=== PATIENT | female | born 1985 | race Caucasian/White ===

== ENCOUNTER 2017-09-23 06:47 | Inpatient (IN) | payer BC ==
[2017-09-23] MEDS ORDERED: Ondansetron 4 MG/2 ML SDV IVPUSH PRN ×3 (08:14→19:29)
[2017-09-23] MEDS ORDERED: Sodium Chloride 0.9% 10 ML Syringe FLUSH PRN (08:14)
[2017-09-23] MEDS ORDERED: Oxytocin/Lactated Ringers 10 UNIT/1,000 ML BAG IV SCH (08:15)
[2017-09-23] MEDS ORDERED: ePHEDrine 50 MG/ML SDV IVPUSH PRN (08:41)
[2017-09-23] MEDS ORDERED: Phenylephrine 1 MG in Sodium Chloride 0.9% 10 ML IV SCH (08:45)
[2017-09-23] MEDS ORDERED: Bupivacaine/fentaNYL/NS 100 ML Bag EPIDUR SCH (08:45)
--- NOTE | 2017-09-23 08:48 | PCM.PREANE ---
Preanesthetic Assessment - Anesthesia/Transfusion/Family Hx Anesthesia History: Prior Anesthesia Without Reaction Family History of Anesthesia Reaction: No Transfusion History: No Prior Transfusion(s) Intubation History: Unknown - Review of Systems General: No Symptoms Pulmonary: No Symptoms Cardiovascular: No Symptoms Gastrointestinal: No Symptoms (GERD with ) Neurological: No Symptoms Other: Reports: None - Physical Assessment NPO Status Date: 09/23/17 NPO Status Time: 09:00 Pulse: 82 O2 Sat by Pulse Oximetry: 99 Respiratory Rate: 18 Blood Pressure: 110/72 Temperature: 36.8 C Vital Signs: Last Vital Signs Temp 36.8 C 09/23/17 07:50 Pulse 82 09/23/17 08:02 Resp 18 09/23/17 07:50 BP 110/72 09/23/17 07:53 Pulse Ox Height: 1.63 m Weight: 79.379 kg ASA Class: 2 Mental Status: Alert & Oriented x3 Airway Class: Mallampati = 2 Dentition: Reports: Normal Dentition, Caries Thyro-Mental Finger Breadths: 3 Mouth Opening Finger Breadths: 3 ROM/Head Extension: Full Lungs: Clear to Auscultation, Normal Respiratory Effort Cardiovascular: Regular Rate, Regular Rhythm, No Murmurs - Lab Values: Laboratory Last Values WBC 8.16 K/mm3 (3.98-10.04) 09/23/17 08:30 RBC 3.63 M/mm3 (3.98-5.22) L 09/23/17 08:30 Hgb 10.8 gm/L (11.2-15.7) L 09/23/17 08:30 Hct 32.4 % (34.1-44.9) L 09/23/17 08:30 MCV 89.3 fl (79.4-94.8) 09/23/17 08:30 MCH 29.8 pg (25.6-32.2) 09/23/17 08:30 MCHC 33.3 g/dl (32.2-35.5) 09/23/17 08:30 RDW Std Deviation 43.6 fL (36.4-46.3) 09/23/17 08:30 Plt Count 155 K/mm3 (182-369) L 09/23/17 08:30 MPV 11.2 fl (9.4-12.3) 09/23/17 08:30 Neut % (Auto) 68.9 % (34.0-71.1) 09/23/17 08:30 Lymph % (Auto) 20.3 % (19.3-51.7) 09/23/17 08:30 [place] % (Auto) 8.6 % (4.7-12.5) 09/23/17 08:30 Eos % (Auto) 1.1 (0.7-5.8) 09/23/17 08:30 Baso % (Auto) 0.5 % (0.1-1.2) 09/23/17 08:30 Neut # (Auto) 5.62 K/mm3 (1.56-6.13) 09/23/17 08:30 Lymph # (Auto) 1.66 K/mm3 (1.18-3.74) 09/23/17 08:30 [place] # (Auto) 0.70 K/mm3 (0.24-0.36) H 09/23/17 08:30 Eos # (Auto) 0.09 K/mm3 (0.04-0.36) 09/23/17 08:30 Baso # (Auto) 0.04 K/mm3 (0.01-0.08) 09/23/17 08:30 Above labs reviewed and noted and within acceptable ranges to proceed with epidural. 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 Musculoskeletal History: Reports: None Hematologic History: Reports: Anemia - Past Surgical History Musculoskeletal Surgical History: Reports: Other (See Below) - SUBSTANCE USE Smoking Status *Q: Never Smoker Tobacco Use Within Last Twelve Months: No Second Hand Smoke Exposure: No Days Per Week of Alcohol Use: 0 Recreational Drug Use History: No - HOME MEDS Home Medications: Home Meds Vit No.124/Iron/FA [ Vitamin Tablet] 1 tab PO DAILY 09/20/15 [ History] - CURRENT (IN HOUSE) MEDS Current Meds: Current Medications Ephedrine Sulfate (Ephedrine Sulfate) 5 mg IVPUSH ASDIRECTED PRN PRN Reason: Hypotension Fentanyl (Sublimaze) 100 mcg EPIDUR Q3H PRN PRN Reason: Pain Fentanyl/Bupivacaine HCl (Fentanyl/Bupivacaine/Ns 2 Mcg-0.125% 100 Ml) 100 ml EPIDUR ASDIRECTED ANNABELLE Lactated Ringer's (Ringers, Lactated) 1,000 mls @ 100 mls/hr IV ASDIRECTED ANNABELLE Oxytocin/Lactated Ringer's (Pitocin In Lr 10 Units/1,000 Ml) 10 unit in 1,000 mls @ 5,000 mls/hr IV .CONTINUOUS ANNABELLE; Protocol Phenylephrine HCl 1 mg/ Sodium (Chloride) 10.1 mls @ 1 mls/sec IV TITRATE ANNABELLE; Protocol Ondansetron HCl (Zofran) 4 mg IVPUSH Q4H PRN PRN Reason: Nausea/Vomiting Ondansetron HCl (Zofran) 4 mg IVPUSH ONETIME PRN PRN Reason: Nausea/Vomiting Sodium Chloride (Saline Flush) 10 ml FLUSH ASDIRECTED PRN PRN Reason: Keep Vein Open
[2017-09-23] MEDS: Oxytocin/Lactated Ringers 10 UNIT/1,000 ML BAG IV SCH ×2 (09:40→15:59)
[2017-09-23] MEDS: Lactated Ringers 1,000 ML IV SCH ×5 (09:40→15:58)
[2017-09-23] MEDS: fentaNYL 100 MCG/2 ML SDV EPIDUR PRN ×2 (12:48→14:32)
[2017-09-23] MEDS ORDERED: Bupivacaine 0.25% 10 ML SDV ONE (16:00)
[2017-09-23] MEDS ORDERED: Benzocaine/Menthol 20%-0.5% Spray 56 GM Canister TOP PRN (18:28)
[2017-09-23] MEDS ORDERED: Witch Hazel Medicated Pads 100/Jar TOP PRN (18:28)
[2017-09-23] MEDS ORDERED: fentaNYL 100 MCG/2 ML SDV ONE (19:12)
[2017-09-23] MEDS ORDERED: Oxytocin/Lactated Ringers 10 UNIT/1,000 ML BAG IV ONE (19:16)
[2017-09-23] MEDS ORDERED: fentaNYL 100 MCG/2 ML SDV IVPUSH ONE (19:26)
--- NOTE | 2017-09-23 19:26 | PCM.SN ---
- Free Text/Narrative Note: On floor and asked to come in to see patient with increased bleeding. Had a saturated chux x 2. Bladder emptied of 400 mL 50mcg of fentanyl given. Uterus evacuated of 100 mL of clot. Fundus then firm Methergine 0.2 mg given
[2017-09-23] MEDS ORDERED: Methylergonovine 0.2 MG/1 ML Amp IM ONE (19:30)
[2017-09-23] MEDS ORDERED: ceFAZolin 2 GM in Premix Bag 1 BAG IV ONE (19:30)
[2017-09-23] MEDS: Ibuprofen 600 MG Tab PO PRN (21:25)
[2017-09-24] MEDS: Ibuprofen 600 MG Tab PO PRN ×3 (03:34→16:14)
--- NOTE | 2017-09-24 07:51 | PCM.DEL ---
L & D Note - General Info Date of Service: 09/23/17 - Delivery Note Labor: Augmented by ARM Cervical Ripening Method: Oxytocin Delivery Outcome: Livebirth Presentation: Vertex Anesthesia Type: Epidural Episiotomy Type: None Laceration: None Placenta: Intact, Spontaneous Resuscitation Needed: No Score 1 min: 8 Score 5 min: 9 Delivery Comments (Free Text/Narrative):: of viable male. 8#13 at 543pm - General Info Date of Service: 09/24/17 Functional Status: Reports: Pain Controlled - Review of Systems General: Reports: No Symptoms HEENT: Reports: No Symptoms Pulmonary: Reports: No Symptoms Cardiovascular: Reports: No Symptoms Gastrointestinal: Reports: No Symptoms Genitourinary: Reports: No Symptoms Musculoskeletal: Reports: No Symptoms Skin: Reports: No Symptoms Neurological: Reports: No Symptoms Psychiatric: Reports: No Symptoms - Patient Data Vitals - Most Recent: Last Vital Signs Temp 36.6 C 09/24/17 03:31 Pulse 70 09/24/17 03:31 Resp 15 09/24/17 03:31 BP 111/62 09/24/17 03:31 Pulse Ox 99 09/24/17 03:31 Weight - Most Recent: 79.379 kg I&O - Last 24 Hours: Intake & Output 09/23/17 09/24/17 09/24/17 22:59 06:59 14:59 Intake Total 5000 2050 Output Total 400 Balance 4600 2050 Lab Results Last 24 Hours: Laboratory Results - last 24 hr 09/23/17 Range/Units 08:30 WBC 8.16 (3.98-10.04) K/mm3 RBC 3.63 L (3.98-5.22) M/mm3 Hgb 10.8 L (11.2-15.7) gm/L Hct 32.4 L (34.1-44.9) % MCV 89.3 (79.4-94.8) fl MCH 29.8 (25.6-32.2) pg MCHC 33.3 (32.2-35.5) g/dl RDW Std Deviation 43.6 (36.4-46.3) fL Plt Count 155 L (182-369) K/mm3 MPV 11.2 (9.4-12.3) fl Neut % (Auto) 68.9 (34.0-71.1) % Lymph % (Auto) 20.3 (19.3-51.7) % [place] % (Auto) 8.6 (4.7-12.5) % Eos % (Auto) 1.1 (0.7-5.8) Baso % (Auto) 0.5 (0.1-1.2) % Neut # (Auto) 5.62 (1.56-6.13) K/mm3 Lymph # (Auto) 1.66 (1.18-3.74) K/mm3 [place] # (Auto) 0.70 H (0.24-0.36) K/mm3 Eos # (Auto) 0.09 (0.04-0.36) K/mm3 Baso # (Auto) 0.04 (0.01-0.08) K/mm3 Med Orders - Current: Current Medications Benzocaine/Menthol (Dermoplast Pain Relief Shirley) 0 gm TOP ASDIRECTED PRN PRN Reason: Perineal Comfort Measure Last Admin: 09/23/17 19:56 Dose: 1 applic Ibuprofen (Motrin) 600 mg PO Q6H PRN PRN Reason: Mild pain or fever Last Admin: 09/24/17 03:34 Dose: 600 mg Ondansetron HCl (Zofran) 4 mg IVPUSH Q8H PRN PRN Reason: Nausea Last Admin: 09/23/17 19:48 Dose: 4 mg Witch Maria (Tucks) 1 pad TOP ASDIRECTED PRN PRN Reason: Hemorrhoid pain Last Admin: 09/23/17 19:56 Dose: 1 applic Discontinued Medications Ephedrine Sulfate (Ephedrine Sulfate) 5 mg IVPUSH ASDIRECTED PRN PRN Reason: Hypotension Fentanyl (Sublimaze) 100 mcg EPIDUR Q3H PRN PRN Reason: Pain Last Admin: 09/23/17 14:32 Dose: 100 mcg Fentanyl (Sublimaze) Confirm Administered Dose 100 mcg .ROUTE .STK-MED ONE Stop: 09/23/17 19:13 Last Admin: 09/23/17 19:53 Dose: Not Given Fentanyl (Sublimaze) 50 mcg IVPUSH ONETIME ONE Stop: 09/23/17 19:27 Last Admin: 09/23/17 19:34 Dose: 50 mcg Fentanyl/Bupivacaine HCl (Fentanyl/Bupivacaine/Ns 2 Mcg-0.125% 100 Ml) 100 ml EPIDUR ASDIRECTED ANNABELLE Last Admin: 09/23/17 12:48 Dose: 100 ml Lactated Ringer's (Ringers, Lactated) 1,000 mls @ 100 mls/hr IV ASDIRECTED ANNABELLE Last Admin: 09/23/17 15:58 Dose: 999 mls/hr Oxytocin/Lactated Ringer's (Pitocin In Lr 10 Units/1,000 Ml) 10 unit in 1,000 mls @ 5,000 mls/hr IV .CONTINUOUS ANNABELLE; Protocol Last Admin: 09/23/17 19:36 Dose: 500 mls/hr Phenylephrine HCl 1 mg/ Sodium (Chloride) 10.1 mls @ 1 mls/sec IV TITRATE ANNABELLE; Protocol Oxytocin/Lactated Ringer's (Pitocin In Lr 10 Units/1,000 Ml) 10 unit in 1,000 mls @ 12 mls/hr IV TITRATE ANNABELLE; Protocol Last Titration: 09/23/17 16:35 Dose: 0 munits/min, 0 mls/hr Oxytocin/Lactated Ringer's (Pitocin In Lr 10 Units/1,000 Ml) Confirm Administered Dose 10 unit in 1,000 mls @ as directed IV .STK-MED ONE Stop: 09/23/17 19:17 Last Admin: 09/23/17 19:53 Dose: Not Given Cefazolin Sodium/Dextrose 2 gm (/ Premix) 50 mls @ 100 mls/hr IV ONETIME ONE Stop: 09/23/17 19:59 Last Admin: 09/23/17 19:56 Dose: 100 mls/hr Methylergonovine Maleate (Methergine) 0.2 mg IM ONETIME ONE Stop: 09/23/17 19:31 Last Admin: 09/23/17 19:53 Dose: Not Given Ondansetron HCl (Zofran) 4 mg IVPUSH Q4H PRN PRN Reason: Nausea/Vomiting Ondansetron HCl (Zofran) 4 mg IVPUSH ONETIME PRN PRN Reason: Nausea/Vomiting Sodium Chloride (Saline Flush) 10 ml FLUSH ASDIRECTED PRN PRN Reason: Keep Vein Open - Exam General: Alert, Oriented HEENT: Pupils Equal, Pupils Reactive, EOMI, Mucous Membr. Moist/[place] Neck: Supple Lungs: Clear to Auscultation, Normal Respiratory Effort Cardiovascular: Regular Rate, Regular Rhythm GI/Abdominal Exam: Normal Bowel Sounds, Soft, Non-Tender, No Organomegaly, No Distention, No Abnormal Bruit, No Mass, Pelvis Stable Back Exam: Normal Inspection, Full Range of Motion Extremities: Normal Inspection, Normal Range of Motion, Non-Tender, No Pedal Edema, Normal Capillary Refill Skin: Warm, Dry, Intact Wound/Incisions: Healing Well Neurological: No New Focal Deficit Psy/Mental Status: Alert, Normal Affect, Normal Mood - Problem List Review Problem List Initiated/Reviewed/Updated: Yes - My Orders Last 24 Hours: My Active Orders 09/23/17 08:14 Resuscitation Status Routine 09/23/17 08:15 Heart Tones [RC] ASDIRECTED Peripheral IV Care [RC] . DIRECTED 09/23/17 18:28 Activity as Tolerated [RC] PER UNIT ROUTINE Vital Signs [RC] 09,15,21,03 Benzocaine/Menthol [Dermoplast Pain Relief Shirley] See Dose Instructions TOP ASDIRECTED PRN Ibuprofen [Motrin] 600 mg PO Q6H PRN [place] [Tucks] 1 pad TOP ASDIRECTED PRN Assess Lochia [WOMSER] Per Unit Routine Assess Uterine Involution [WOMSER] Per Unit Routine Breast Pump [WOMSER] Per Unit Routine Heat Therapy [OM.PC] PRN Medication Administration Instruction [OM.PC] Routine Perineal Care [OM.PC] Per Unit Routine Sitz Bath [OM.PC] Per Unit Routine 09/23/17 19:29 Ondansetron [Zofran] 4 mg IVPUSH Q8H PRN 09/24/17 07:45 Ready for Discharge [RC] PER UNIT ROUTINE 09/24/17 18:28 Heat Therapy [OM.PC] PRN 09/24/17 Breakfast Regular Diet [DIET] - Assessment Assessment:: Term labor and delivery. Doing well. Home today at 24 hours
--- NOTE | 2017-09-24 09:37 | PCM48HPAN ---
Post Anesthesia Note - EVALUATION WITHIN 48HRS OF ANESTHETIC Vital Signs in Normal Range: Yes Patient Participated in Evaluation: Yes Respiratory Function Stable: Yes Airway Patent: Yes Cardiovascular Function Stable: Yes Hydration Status Stable: Yes Pain Control Satisfactory: Yes Nausea and Vomiting Control Satisfactory: Yes Mental Status Recovered: Yes - COMMENTS/OBSERVATIONS Free Text/Narrative:: Pt denies any anesthesia complications
[2017-09-24 15:58] VITALS: BP 111/70
--- NOTE | 2017-09-30 06:21 | PCM.LDHP ---
L&D History of Present Illness - General Date of Service: 09/23/17 Admit Problem/Dx: Admission Diagnosis/Problem Admission Diagnosis/Problem Normal labor Source of Information: Patient History Limitations: Reports: No Limitations - History of Present Illness Introduction:: 32 year old presents for elective induction of labor. 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 General: Reports: No Symptoms HEENT: Reports: No Symptoms Pulmonary: Reports: No Symptoms Cardiovascular: Reports: No Symptoms Gastrointestinal: Reports: No Symptoms Genitourinary: Reports: No Symptoms Musculoskeletal: Reports: No Symptoms Skin: Reports: No Symptoms Psychiatric: Reports: No Symptoms Neurological: Reports: No Symptoms Hematologic/Lymphatic: Reports: No Symptoms Immunologic: Reports: No Symptoms L&D Exam - Exam Exam: See Below - Vital Signs Vital Signs: Last Vital Signs Temp 36.8 C 09/24/17 15:01 Pulse 75 09/24/17 15:01 Resp 18 09/24/17 15:01 BP 111/70 09/24/17 15:01 Pulse Ox 98 09/24/17 15:01 Weight: 79.379 kg - OB Specific Contraction Intensity: Irritability Movement: Active Heart Tones: Present Heart Tones per Min: 145 Presentation: Vertex - Villanueva Score Villanueva Score Cervix Position: Midposition Villanueva Score Consistency: Medium Villanueva Score Effacement: 51-70% Villanueva Score Dilation: 3-4 cm Villanueva Score Infant's Station: -2 Villanueva Score Total: 7 - Exam General: Alert, Oriented HEENT: PERRLA, Conjunctiva Clear, EACs Clear, EOMI, Hearing Intact, Mucosa Moist & [place], Nares Patent, Normal Nasal Septum, Posterior Pharynx Clear, TMs Clear Neck: Supple, Trachea Midline Lungs: Clear to Auscultation, Normal Respiratory Effort Cardiovascular: Regular Rate, Regular Rhythm GI/Abdominal Exam: Normal Bowel Sounds, Soft, Non-Tender, No Organomegaly, No Distention, No Abnormal Bruit, No Mass, Pelvis Stable Genitourinary: Normal external exam, Normal bimanual exam Back Exam: Normal Inspection, Full Range of Motion Extremities: Normal Inspection, Normal Range of Motion, Non-Tender, No Pedal Edema, Normal Capillary Refill Skin: Warm, Dry, Intact Neurological: Cranial Nerves Intact, Reflexes Equal Bilateral Psychiatric: Alert, Normal Affect, Normal Mood - Patient Data Result Diagrams: 09/23/17 08:30 Problem List Initiated/Reviewed/Updated: Yes Assessment/Plan Comment:: Term induction. Uncomplicated care. Anticipate . IVF. CBC. Type and screen
== END 2017-09-24 17:20 | disposition home or self-care (01) | DRG 560 ==
LOC: JD.OB 06:47 → OBSVTOIN 17:42 → JD.OB 17:52
PROVIDERS: ADMIT Obstetrics & Gynecology; ATTEND Obstetrics & Gynecology
PROC: 10907ZC Drainage of Amniotic Fluid, Therapeutic from Products of Conception, Via Natural or Artificial Opening (ICD-10-PCS; principal; 2017-09-23)
PROC: 10E0XZZ Delivery of Products of Conception, External Approach (ICD-10-PCS; principal; 2017-09-23)
PROC: 0UC97ZZ Extirpation of Matter from Uterus, Via Natural or Artificial Opening (ICD-10-PCS; 2017-09-23)
PROC: 00HU33Z Insertion of Infusion Device into Spinal Canal, Percutaneous Approach (ICD-10-PCS; 2017-09-23)
PROC: 3E0R3BZ Introduction of Anesthetic Agent into Spinal Canal, Percutaneous Approach (ICD-10-PCS; 2017-09-23)
DX: O99.02 Anemia complicating childbirth (principal); O72.2 Delayed and secondary postpartum hemorrhage; Z3A.39 39 weeks gestation of pregnancy; Z37.0 Single live birth
CPT/HCPCS: 36415; 51701; 51702; 59025; 59409; 85025; A9270-GY; J0690; J2405; J2590; J3010; J7120

== ENCOUNTER 2019-08-03 08:43 | Inpatient (IN) | payer OTHER ==
[~2019-08-03 08:43] MED LIST: Lidocaine 1.5% with EPINEPHrine 1:200,000 5 ML Amp ONE
[2019-08-03] MEDS ORDERED: Ondansetron 4 MG/2 ML SDV IVPUSH PRN (09:48)
[2019-08-03] MEDS ORDERED: Sodium Chloride 0.9% 10 ML Syringe FLUSH PRN (09:48)
[2019-08-03] MEDS ORDERED: Nalbuphine 10 MG/ML Syringe IVPUSH PRN (09:48)
[2019-08-03] MEDS ORDERED: Oxytocin/Lactated Ringers 10 UNIT/1,000 ML BAG IV SCH ×2 (10:00)
[2019-08-03] MEDS: Lactated Ringers 1,000 ML IV SCH ×2 (10:20→12:55)
[2019-08-03] MEDS ORDERED: Bupivacaine/fentaNYL/NS 100 ML Bag EPIDUR PRN (10:56)
[2019-08-03] MEDS ORDERED: fentaNYL 100 MCG/2 ML SDV EPIDUR PRN (10:56)
[2019-08-03] MEDS ORDERED: diphenhydrAMINE 50 MG/ML SDV IVPUSH PRN (10:56)
[2019-08-03] MEDS ORDERED: ePHEDrine 50 MG/ML SDV IVPUSH PRN (10:56)
--- NOTE | 2019-08-03 11:04 | PCM.PREANE ---
Preanesthetic Assessment - Anesthesia/Transfusion/Family Hx Anesthesia History: Prior Anesthesia Without Reaction Transfusion History: No Prior Transfusion(s) Intubation History: Unknown - Review of Systems General: No Symptoms Pulmonary: No Symptoms Cardiovascular: No Symptoms Gastrointestinal: No Symptoms Neurological: No Symptoms Other: Reports: None - Physical Assessment Vital Signs: Last Vital Signs Temp 98.7 F 08/03/19 09:48 Pulse 92 08/03/19 09:48 Resp 16 08/03/19 09:48 BP 105/68 08/03/19 09:48 Pulse Ox 99 08/03/19 09:48 Height: 1.6 m Weight: 78.471 kg ASA Class: 2 Mental Status: Alert & Oriented x3 Airway Class: Mallampati = 1 Dentition: Reports: Normal Dentition Thyro-Mental Finger Breadths: 3 Mouth Opening Finger Breadths: 3 ROM/Head Extension: Full Lungs: Clear to Auscultation, Normal Respiratory Effort Cardiovascular: Regular Rate, Regular Rhythm - Lab Values: Laboratory Last Values WBC 7.56 K/mm3 (3.98-10.04) 08/03/19 10:05 RBC 3.58 M/mm3 (3.98-5.22) L 08/03/19 10:05 Hgb 10.3 gm/dl (11.2-15.7) L 08/03/19 10:05 Hct 32.3 % (34.1-44.9) L 08/03/19 10:05 MCV 90.2 fl (79.4-94.8) 08/03/19 10:05 MCH 28.8 pg (25.6-32.2) 08/03/19 10:05 MCHC 31.9 g/dl (32.2-35.5) L 08/03/19 10:05 RDW Std Deviation 45.4 fL (36.4-46.3) 08/03/19 10:05 Plt Count 178 K/mm3 (182-369) L 08/03/19 10:05 MPV 10.3 fl (9.4-12.3) 08/03/19 10:05 Neut % (Auto) 71.9 % (34.0-71.1) H 08/03/19 10:05 Lymph % (Auto) 18.7 % (19.3-51.7) L 08/03/19 10:05 [place] % (Auto) 7.5 % (4.7-12.5) 08/03/19 10:05 Eos % (Auto) 1.2 (0.7-5.8) 08/03/19 10:05 Baso % (Auto) 0.3 % (0.1-1.2) 08/03/19 10:05 Neut # (Auto) 5.44 K/mm3 (1.56-6.13) 08/03/19 10:05 Lymph # (Auto) 1.41 K/mm3 (1.18-3.74) 08/03/19 10:05 [place] # (Auto) 0.57 K/mm3 (0.24-0.36) H 08/03/19 10:05 Eos # (Auto) 0.09 K/mm3 (0.04-0.36) 08/03/19 10:05 Baso # (Auto) 0.02 K/mm3 (0.01-0.08) 08/03/19 10:05 - Allergies Allergies/Adverse Reactions: Allergies Allergy/AdvReac Type Severity Reaction Status Date / Time amoxicillin [Amoxicillin] Allergy Rash Verified 09/20/15 06:24 - Acknowledgements Anesthesia Type Planned: Epidural Pt an Appropriate Candidate for the Planned Anesthesia: Yes Alternatives and Risks of Anesthesia Discussed w Pt/Guardian: Yes Pt/Guardian Understands and Agrees with Anesthesia Plan: Yes PreAnesthesia Questionnaire 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: , 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 , Other (See Below) Other OB/BYN History: PP hemmorage with last Musculoskeletal History: Reports: None Psychiatric History: Reports: Other (See Below) Other Psychiatric History: PP depression/anxiety with 1st Hematologic History: Reports: Anemia - Past Surgical History Musculoskeletal Surgical History: Reports: Other (See Below) Other Musculoskeletal Surgeries/Procedures:: R knee surgery - HOME MEDS Home Medications: Home Meds Vit No.124/Iron/Folic [ Vitamin Tablet] 1 tab PO DAILY [History] Ascorbic Acid [Vitamin C] 500 mg PO DAILY PRN 08/03/19 [History] Cholecalciferol (Vitamin D3) [Vitamin D3] 5,000 unit PO DAILY 08/03/19 [History] - CURRENT (IN HOUSE) MEDS Current Meds: Current Medications Lactated Ringer's (Ringers, Lactated) 1,000 mls @ 100 mls/hr IV ASDIRECTED ANNABELLE Last Admin: 08/03/19 10:20 Dose: 100 mls/hr Oxytocin/Lactated Ringer's (Pitocin In Lr 10 Units/1,000 Ml) 10 unit in 1,000 mls @ 12 mls/hr IV TITRATE ANNABELLE; Protocol Last Admin: 08/03/19 10:20 Dose: 2 munits/min, 12 mls/hr Oxytocin/Lactated Ringer's (Pitocin In Lr 10 Units/1,000 Ml) 10 unit in 1,000 mls @ 100 mls/hr IV .CONTINUOUS ANNABELLE Nalbuphine HCl (Nubain) 10 mg IVPUSH Q2H PRN PRN Reason: Pain Ondansetron HCl (Zofran) 4 mg IVPUSH Q4H PRN PRN Reason: Nausea/Vomiting Sodium Chloride (Saline Flush) 10 ml FLUSH ASDIRECTED PRN PRN Reason: Keep Vein Open
--- NOTE | 2019-08-03 18:19 | PCM.LDHP ---
L&D History of Present Illness - General Date of Service: 08/03/19 Admit Problem/Dx: Patient Status Order with Admit Dx/Problem 08/03/19 09:49 Patient Status [ADT] Routine Admission Diagnosis/Problem Admission Diagnosis/Problem - History of Present Illness Introduction:: 34 year old here for induction of labor. PNC with myself without complications. - Related Data Allergies/Adverse Reactions: Allergies Allergy/AdvReac Type Severity Reaction Status Date / Time amoxicillin [Amoxicillin] Allergy Rash Verified 09/20/15 06:24 Home Medications: Home Meds Vit No.124/Iron/Folic [ Vitamin Tablet] 1 tab PO DAILY [History] Ascorbic Acid [Vitamin C] 500 mg PO DAILY PRN 08/03/19 [History] Cholecalciferol (Vitamin D3) [Vitamin D3] 5,000 unit PO DAILY 08/03/19 [History] Past Medical History [employer] History: Reports: , Spontaneous , Other (See Below) Other OB/BYN History: PP hemmorage with last Musculoskeletal History: Reports: None Psychiatric History: Reports: Other (See Below) Other Psychiatric History: PP depression/anxiety with 1st Hematologic History: Reports: Anemia - Past Surgical History Musculoskeletal Surgical History: Reports: Other (See Below) Other Musculoskeletal Surgeries/Procedures:: R knee surgery Social & Family History - Family History Family Medical History: Noncontributory - Tobacco Use Smoking Status *Q: Never Smoker - Caffeine Use Caffeine Use: Reports: None - Recreational Drug Use Recreational Drug Use: No H&P Review of Systems - Review of Systems: Review Of Systems: See Below General: Reports: No Symptoms HEENT: Reports: No Symptoms Pulmonary: Reports: No Symptoms Cardiovascular: Reports: No Symptoms Gastrointestinal: Reports: No Symptoms Genitourinary: Reports: No Symptoms Musculoskeletal: Reports: No Symptoms Skin: Reports: No Symptoms Psychiatric: Reports: No Symptoms Neurological: Reports: No Symptoms Hematologic/Lymphatic: Reports: No Symptoms Immunologic: Reports: No Symptoms L&D Exam - Exam Exam: See Below - Vital Signs Vital Signs: Last Vital Signs Temp 37.1 C 08/03/19 09:48 Pulse 92 08/03/19 09:48 Resp 16 08/03/19 09:48 BP 105/68 08/03/19 09:48 Pulse Ox 99 08/03/19 09:48 Weight: 78.471 kg - OB Specific Contraction Intensity: Mild to Moderate Movement: Active Heart Tones: Present - Villanueva Score Villanueva Score Cervix Position: Midposition Villanueva Score Consistency: Medium Villanueva Score Effacement: 51-70% Villanueva Score Dilation: 3-4 cm Villanueva Score 's Station: -2 Villanueva Score Total: 7 - Exam General: Alert, Oriented HEENT: PERRLA, Conjunctiva Clear, EACs Clear, EOMI, Hearing Intact, Mucosa Moist & [place], Nares Patent, Normal Nasal Septum, Posterior Pharynx Clear, TMs Clear Neck: Supple, Trachea Midline Lungs: Clear to Auscultation, Normal Respiratory Effort Cardiovascular: Regular Rate, Regular Rhythm GI/Abdominal Exam: Normal Bowel Sounds, Soft, Non-Tender, No Organomegaly, No Distention, No Abnormal Bruit, No Mass, Pelvis Stable Back Exam: Normal Inspection, Full Range of Motion Extremities: Normal Inspection, Normal Range of Motion, Non-Tender, No Pedal Edema, Normal Capillary Refill Skin: Warm, Dry, Intact Neurological: Cranial Nerves Intact, Reflexes Equal Bilateral Psychiatric: Alert, Normal Affect, Normal Mood - Patient Data Lab Results Last 24 hrs: Laboratory Results - last 24 hr 08/03/19 08/03/19 Range/Units 10:05 10:05 WBC 7.56 (3.98-10.04) K/mm3 RBC 3.58 L (3.98-5.22) M/mm3 Hgb 10.3 L (11.2-15.7) gm/dl Hct 32.3 L (34.1-44.9) % MCV 90.2 (79.4-94.8) fl MCH 28.8 (25.6-32.2) pg MCHC 31.9 L (32.2-35.5) g/dl RDW Std Deviation 45.4 (36.4-46.3) fL Plt Count 178 L (182-369) K/mm3 MPV 10.3 (9.4-12.3) fl Neut % (Auto) 71.9 H (34.0-71.1) % Lymph % (Auto) 18.7 L (19.3-51.7) % [place] % (Auto) 7.5 (4.7-12.5) % Eos % (Auto) 1.2 (0.7-5.8) Baso % (Auto) 0.3 (0.1-1.2) % Neut # (Auto) 5.44 (1.56-6.13) K/mm3 Lymph # (Auto) 1.41 (1.18-3.74) K/mm3 [place] # (Auto) 0.57 H (0.24-0.36) K/mm3 Eos # (Auto) 0.09 (0.04-0.36) K/mm3 Baso # (Auto) 0.02 (0.01-0.08) K/mm3 Blood Type A POSITIVE Gel Antibody Screen Negative Result Diagrams: 08/03/19 10:05 Problem List Initiated/Reviewed/Updated: Yes Orders Last 24hrs: Active Orders 24 hr Category Date Time Status Patient Status [ADT] Routine ADT 08/03/19 09:49 Active Activity as Tolerated [RC] PFP Care 08/03/19 09:48 Active Communication Order [RC] ASDIRECTED Care 08/03/19 09:48 Active Heart Tones [RC] ASDIRECTED Care 08/03/19 09:49 Active Non Stress Test [RC] PER UNIT ROUTINE Care 08/03/19 09:48 Active Notify Provider [RC] ASDIRECTED Care 08/03/19 10:56 Active Notify Provider [RC] PFP Care 08/03/19 09:48 Active Notify Provider [RC] PRN Care 08/03/19 09:48 Active Peripheral IV Care [RC] . DIRECTED Care 08/03/19 09:49 Active Pump Management, Intrathecal [RC] ASDIRECTED Care 08/03/19 09:50 Active Vital Signs [RC] PER UNIT ROUTINE Care 08/03/19 09:48 Active Regular Diet [DIET] Diet 08/03/19 Breakfast Active PATIENT RETYPE [BBK] Routine Lab 08/03/19 11:23 Ordered RAPID PLASMA REAGIN,RPR [CHEM] Routine Lab 08/03/19 09:48 Ordered Bupivacaine/fentaNYL/NS [fentaNYL/Bupivacaine/NS 2 MCG- Med 08/03/19 10:56 Active 0.125% 100 ML] 100 ml EPIDUR ASDIRECTED PRN Lactated Ringers [Ringers, Lactated] 1,000 ml Med 08/03/19 10:00 Active IV ASDIRECTED Nalbuphine [Nubain] Med 08/03/19 09:48 Active 10 mg IVPUSH Q2H PRN Ondansetron [Zofran] Med 08/03/19 09:48 Active 4 mg IVPUSH Q4H PRN Oxytocin/Lactated Ringers [Pitocin in LR 10 Units/1,000 Med 08/03/19 10:00 Active ML] 10 unit in 1,000 ml IV .CONTINUOUS Oxytocin/Lactated Ringers [Pitocin in LR 10 Units/1,000 Med 08/03/19 10:00 Active ML] 10 unit in 1,000 ml IV TITRATE Sodium Chloride 0.9% [Saline Flush] Med 08/03/19 09:48 Active 10 ml FLUSH ASDIRECTED PRN diphenhydrAMINE [Benadryl] Med 08/03/19 10:56 Active 25 mg IVPUSH Q6H PRN ePHEDrine [ePHEDrine sulfate] Med 08/03/19 10:56 Active 5 mg IVPUSH ASDIRECTED PRN fentaNYL [Sublimaze] Med 08/03/19 10:56 Active 100 mcg EPIDUR Q3H PRN Electronic Heart Tones Ext w TOCO [WOMSER] Oth 08/03/19 09:48 Ordered Routine Electronic Heart Tones Internal [WOMSER] Per Unit Oth 08/03/19 09:48 Ordered Routine Peripheral IV Insertion Adult [OM.PC] Routine Oth 08/03/19 09:48 Ordered Resuscitation Status Routine Resus Stat 08/03/19 09:48 Ordered Medication Orders Diphenhydramine HCl (Benadryl) 25 mg IVPUSH Q6H PRN PRN Reason: pruritis Ephedrine Sulfate (Ephedrine Sulfate) 5 mg IVPUSH ASDIRECTED PRN PRN Reason: Hypotension Fentanyl (Sublimaze) 100 mcg EPIDUR Q3H PRN PRN Reason: Pain Last Admin: 08/03/19 12:54 Dose: 100 mcg Fentanyl/Bupivacaine HCl (Fentanyl/Bupivacaine/Ns 2 Mcg-0.125% 100 Ml) 100 ml EPIDUR ASDIRECTED PRN PRN Reason: Pain Last Admin: 08/03/19 12:54 Dose: 100 ml Lactated Ringer's (Ringers, Lactated) 1,000 mls @ 100 mls/hr IV ASDIRECTED ANNABELLE Last Admin: 08/03/19 12:55 Dose: 100 mls/hr Infusion: 08/03/19 12:55 Dose: 100 mls/hr Admin: 08/03/19 10:20 Dose: 100 mls/hr Oxytocin/Lactated Ringer's (Pitocin In Lr 10 Units/1,000 Ml) 10 unit in 1,000 mls @ 12 mls/hr IV TITRATE ANNABELLE; Protocol Last Titration: 08/03/19 15:10 Dose: 12 munits/min, 72 mls/hr Titration: 08/03/19 14:45 Dose: 10 munits/min, 60 mls/hr Titration: 08/03/19 14:00 Dose: 8 munits/min, 48 mls/hr Titration: 08/03/19 11:52 Dose: 6 munits/min, 36 mls/hr Titration: 08/03/19 11:10 Dose: 4 munits/min, 24 mls/hr Admin: 08/03/19 10:20 Dose: 2 munits/min, 12 mls/hr Oxytocin/Lactated Ringer's (Pitocin In Lr 10 Units/1,000 Ml) 10 unit in 1,000 mls @ 100 mls/hr IV .CONTINUOUS ANNABELLE Nalbuphine HCl (Nubain) 10 mg IVPUSH Q2H PRN PRN Reason: Pain Ondansetron HCl (Zofran) 4 mg IVPUSH Q4H PRN PRN Reason: Nausea/Vomiting Sodium Chloride (Saline Flush) 10 ml FLUSH ASDIRECTED PRN PRN Reason: Keep Vein Open Assessment/Plan Comment:: Term labor. Doing well.
--- NOTE | 2019-08-03 18:22 | PCM.SN ---
- Free Text/Narrative Note: Stage I - patient presented for induction. AROM. Progressed to complete with overall reassuring FHT. Stage II - of viable female, 8/9 APGARS, 3730g 8#4 oz at 1756. Head delivered in controlled manner over intact perineum. Body and shoulders without difficulty. Cord clamped and cut. Stage III - of intact placenta. 3vc. No laceration. EBL 100
[2019-08-03] MEDS ORDERED: Benzocaine/Menthol 20%-0.5% Spray 56 GM Canister TOP PRN (20:23)
[2019-08-03] MEDS ORDERED: Witch Hazel Medicated Pads 40/Jar TOP PRN (20:23)
[2019-08-03] MEDS: Ibuprofen 600 MG Tab PO PRN (20:33)
[2019-08-03] MEDS ORDERED: Docusate Sodium 100 MG Cap PO PRN (22:24)
[2019-08-04] MEDS ORDERED: Acetaminophen 325 MG Tab PO PRN ×2 (00:38→09:07)
[2019-08-04] MEDS: Ibuprofen 600 MG Tab PO PRN (06:54)
--- NOTE | 2019-08-04 07:45 | PCM.DCSUM1 ---
Discharge Summary - Hospital Course HPI Initial Comments: day one. Desires discharge. Minimal bleeding, minimal pain Diagnosis: Stroke: No - Discharge Data Discharge Date: 08/04/19 Discharge Disposition: Home, Self-Care 01 Condition: Good - Referral to Home Health Primary Care Physician: Evelin Merida MD - Patient Summary/Data Hospital Course: Uncomplicated delivery and course - Patient Instructions Diet: Usual Diet as Tolerated Activity: No Strenuous Activities Activity, Other: pelvic rest Driving: May Drive Today Showering/Bathing: May Shower Notify Provider of: Fever, Increased Pain, Swelling and Redness, Drainage, Nausea and/or Vomiting - Discharge Plan *PRESCRIPTION DRUG MONITORING PROGRAM REVIEWED*: No *COPY OF PRESCRIPTION DRUG MONITORING REPORT IN PATIENT STEVE: No Home Medications: Home Meds Vit No.124/Iron/Folic [ Vitamin Tablet] 1 tab PO DAILY [History] Ascorbic Acid [Vitamin C] 500 mg PO DAILY PRN 08/03/19 [History] Cholecalciferol (Vitamin D3) [Vitamin D3] 5,000 unit PO DAILY 08/03/19 [History] Referrals: Evelin Merida MD [Primary Care Provider] - (2 weeks - can schedule video visit) - Discharge Summary/Plan Comment DC Time >30 min.: No - General Info Date of Service: 08/04/19 Functional Status: Reports: Pain Controlled - Review of Systems General: Reports: No Symptoms HEENT: Reports: No Symptoms Pulmonary: Reports: No Symptoms Cardiovascular: Reports: No Symptoms Gastrointestinal: Reports: No Symptoms Genitourinary: Reports: No Symptoms Musculoskeletal: Reports: No Symptoms Skin: Reports: No Symptoms Neurological: Reports: No Symptoms Psychiatric: Reports: No Symptoms - Patient Data Vitals - Most Recent: Last Vital Signs Temp 36.7 C 08/04/19 05:22 Pulse 75 08/04/19 05:22 Resp 14 08/04/19 05:22 BP 118/89 08/04/19 05:22 Pulse Ox 97 08/04/19 05:22 Weight - Most Recent: 78.471 kg I&O - Last 24 hours: Intake & Output 08/03/19 08/04/19 08/04/19 22:59 06:59 14:59 Intake Total 3000 Output Total 200 Balance 2800 Lab Results - Last 24 hrs: Laboratory Results - last 24 hr 08/03/19 08/03/19 08/03/19 Range/Units 10:05 10:05 10:05 WBC 7.56 (3.98-10.04) K/mm3 RBC 3.58 L (3.98-5.22) M/mm3 Hgb 10.3 L (11.2-15.7) gm/dl Hct 32.3 L (34.1-44.9) % MCV 90.2 (79.4-94.8) fl MCH 28.8 (25.6-32.2) pg MCHC 31.9 L (32.2-35.5) g/dl RDW Std Deviation 45.4 (36.4-46.3) fL Plt Count 178 L (182-369) K/mm3 MPV 10.3 (9.4-12.3) fl Neut % (Auto) 71.9 H (34.0-71.1) % Lymph % (Auto) 18.7 L (19.3-51.7) % [place] % (Auto) 7.5 (4.7-12.5) % Eos % (Auto) 1.2 (0.7-5.8) Baso % (Auto) 0.3 (0.1-1.2) % Neut # (Auto) 5.44 (1.56-6.13) K/mm3 Lymph # (Auto) 1.41 (1.18-3.74) K/mm3 [place] # (Auto) 0.57 H (0.24-0.36) K/mm3 Eos # (Auto) 0.09 (0.04-0.36) K/mm3 Baso # (Auto) 0.02 (0.01-0.08) K/mm3 RPR Non-reactive (NONREACTIVE) Blood Type A POSITIVE Gel Antibody Screen Negative Med Orders - Current: Current Medications Acetaminophen (Tylenol) 650 mg PO Q6H PRN PRN Reason: Pain Last Admin: 08/04/19 00:42 Dose: 650 mg Benzocaine/Menthol (Dermoplast Pain Relief [place]) 0 gm TOP ASDIRECTED PRN PRN Reason: Perineal Comfort Measure Last Admin: 08/03/19 20:33 Dose: 1 canister Diphenhydramine HCl (Benadryl) 25 mg IVPUSH Q6H PRN PRN Reason: pruritis Docusate Sodium (Colace) 100 mg PO BID PRN PRN Reason: Constipation Ephedrine Sulfate (Ephedrine Sulfate) 5 mg IVPUSH ASDIRECTED PRN PRN Reason: Hypotension Fentanyl (Sublimaze) 100 mcg EPIDUR Q3H PRN PRN Reason: Pain Last Admin: 08/03/19 12:54 Dose: 100 mcg Fentanyl/Bupivacaine HCl (Fentanyl/Bupivacaine/Ns 2 Mcg-0.125% 100 Ml) 100 ml EPIDUR ASDIRECTED PRN PRN Reason: Pain Last Admin: 08/03/19 12:54 Dose: 100 ml Lactated Ringer's (Ringers, Lactated) 1,000 mls @ 100 mls/hr IV ASDIRECTED ANNABELLE Last Admin: 08/03/19 12:55 Dose: 100 mls/hr Oxytocin/Lactated Ringer's (Pitocin In Lr 10 Units/1,000 Ml) 10 unit in 1,000 mls @ 12 mls/hr IV TITRATE ANNABELLE; Protocol Last Titration: 08/03/19 15:10 Dose: 12 munits/min, 72 mls/hr Oxytocin/Lactated Ringer's (Pitocin In Lr 10 Units/1,000 Ml) 10 unit in 1,000 mls @ 100 mls/hr IV .CONTINUOUS ANNABELLE Ibuprofen (Motrin) 600 mg PO Q6H PRN PRN Reason: Pain Last Admin: 08/04/19 06:54 Dose: 600 mg Nalbuphine HCl (Nubain) 10 mg IVPUSH Q2H PRN PRN Reason: Pain Ondansetron HCl (Zofran) 4 mg IVPUSH Q4H PRN PRN Reason: Nausea/Vomiting Sodium Chloride (Saline Flush) 10 ml FLUSH ASDIRECTED PRN PRN Reason: Keep Vein Open [place] (Tucks) 1 pad TOP ASDIRECTED PRN PRN Reason: Perineal Comfort Measure Last Admin: 08/03/19 20:33 Dose: 1 container - Exam General: Reports: Alert, Oriented HEENT: Reports: Pupils Equal, Pupils Reactive, EOMI, Mucous Membr. Moist/[place] Neck: Reports: Supple Lungs: Reports: Clear to Auscultation, Normal Respiratory Effort Cardiovascular: Reports: Regular Rate, Regular Rhythm GI/Abdominal Exam: Normal Bowel Sounds, Soft, Non-Tender, No Organomegaly, No Distention, No Abnormal Bruit, No Mass, Pelvis Stable Back Exam: Reports: Normal Inspection, Full Range of Motion Extremities: Normal Inspection, Normal Range of Motion, Non-Tender, No Pedal Edema, Normal Capillary Refill Skin: Reports: Warm, Dry, Intact Wound/Incisions: Reports: Healing Well Neurological: Reports: No New Focal Deficit Psy/Mental Status: Reports: Alert, Normal Affect, Normal Mood
--- NOTE | 2019-08-04 07:47 | PCM48HPAN ---
Post Anesthesia Note - EVALUATION WITHIN 48HRS OF ANESTHETIC Vital Signs in Normal Range: Yes Patient Participated in Evaluation: Yes Respiratory Function Stable: Yes Airway Patent: Yes Cardiovascular Function Stable: Yes Hydration Status Stable: Yes Pain Control Satisfactory: Yes Nausea and Vomiting Control Satisfactory: Yes Mental Status Recovered: Yes Vital Signs: Last Vital Signs Temp 36.7 C 08/04/19 05:22 Pulse 75 08/04/19 05:22 Resp 14 08/04/19 05:22 BP 118/89 08/04/19 05:22 Pulse Ox 97 08/04/19 05:22
[2019-08-04] MEDS ORDERED: Docusate Sodium 100 MG Cap PO PRN (09:07)
[2019-08-04 14:50] VITALS: BP 110/76; PULSE 86
== END 2019-08-04 18:50 | disposition home or self-care (01) | DRG 807 ==
LOC: JD.OB 08:43 → OBSVTOIN 17:56 → JD.OB 17:57
PROVIDERS: ADMIT Obstetrics & Gynecology; ATTEND Obstetrics & Gynecology
PROC: 10E0XZZ Delivery of Products of Conception, External Approach (ICD-10-PCS; principal; 2019-08-03)
PROC: 10907ZC Drainage of Amniotic Fluid, Therapeutic from Products of Conception, Via Natural or Artificial Opening (ICD-10-PCS; 2019-08-03)
PROC: 3E0S3BZ Introduction of Anesthetic Agent into Epidural Space, Percutaneous Approach (ICD-10-PCS; 2019-08-03)
DX: O80 Encounter for full-term uncomplicated delivery (principal); Z37.0 Single live birth; Z3A.39 39 weeks gestation of pregnancy
CPT/HCPCS: 36415; 51702; 59025; 59409; 85025; 86592; 86850; 86900; 86901; A9270-GY; J2590; J3010; J7120